=== PATIENT | male | born 1970 | race African-American/Black ===

== ENCOUNTER 2018-04-01 11:37 | Emergency (ER) | payer OTHER ==
[~2018-04-01] VITALS: Ht 180.3 cm; Wt 72.7 kg
[2018-04-01 12:31] VITALS: BP 140/79
== END 2018-04-01 13:56 | disposition home or self-care (01) ==
LOC: EMS 11:39
DX: S20.211A Contusion of right front wall of thorax, initial encounter (principal); S00.83XA Contusion of other part of head, initial encounter; Y04.0XXA Assault by unarmed brawl or fight, initial encounter; X58.XXXA Exposure to other specified factors, initial encounter; Y93.89 Activity, other specified; Y92.89 Other specified places as the place of occurrence of the external cause; Y99.8 Other external cause status

== ENCOUNTER 2018-08-16 09:06 | Emergency (ER) | payer MEDICAID, OTHER ==
[~2018-08-16] VITALS: Ht 180.3 cm; Wt 72.0 kg
[2018-08-16 10:56] VITALS: BP 121/73
== END 2018-08-16 11:25 | disposition home or self-care (01) ==
LOC: EMS 09:06
DX: G89.29 Other chronic pain (principal); M25.572 Pain in left ankle and joints of left foot